=== PATIENT | female | born 1995 | race Caucasian/White ===

== ENCOUNTER 2017-07-11 07:00 | Inpatient (IN) ==
[2017-07-11] MEDS ORDERED: LR 1,000 ML IV PRN (07:23)
[2017-07-11] MEDS ORDERED: CALCIUM CARBONATE Chewable 500mg TABLET PO PRN ×2 (07:23→17:19)
[2017-07-11] MEDS ORDERED: CARBOPROST 250 MCG/ML INJECTION IM PRN (07:23)
[2017-07-11] MEDS ORDERED: D5LR 1,000 ML IV PRN (07:23)
[2017-07-11] MEDS ORDERED: MAG-AL + SIM ORAL LIQUID 30ml PO PRN ×2 (07:23→17:19)
[2017-07-11] MEDS ORDERED: METHYLERGONOVINE 0.2 MG/ML INJECTION IM PRN (07:23)
[2017-07-11] MEDS ORDERED: ACETAMINOPHEN 500 MG TABLET PO PRN ×2 (07:23→17:19)
[2017-07-11] MEDS ORDERED: LIDOCAINE 1% (10mg/ml) 2mL INJ PF SDV ID PRN (07:23)
[2017-07-11] MEDS ORDERED: OXYTOCIN DRIP 30 UNIT/500 ML ML IV PRN (07:23)
[2017-07-11 07:45] VITALS: BMI 36.6
[2017-07-11] MEDS ORDERED: NALOXONE 0.4 MG/ML INJECTION IVP PRN (11:52)
[2017-07-11] MEDS ORDERED: ONDANSETRON 4 MG/2 ML INJECTION IVP PRN (11:52)
[2017-07-11] MEDS ORDERED: DiphenhydrAMINE 50 MG/ML INJECTION IVP PRN (11:52)
[2017-07-11] MEDS ORDERED: ROPIVACAINE 1% 10MG/ML INJ 200 MG, SUFentanil 50 MCG in NS 100 ML EPI PRN (11:52)
--- NOTE | 2017-07-11 11:52 | Anesthesia Preoperative Report ---
Anesthesia Epidural/Spinal Rec - Date and Time Date: 07/11/17 Preoperative Diagnosis: Procedure: Labor Epidural Plan: Epidural - Vital Signs Vital Signs: Temperature 98.8 F 07/11/17 07:38 Pulse Rate 102 H 07/11/17 07:38 Respiratory Rate 16 07/11/17 07:38 Blood Pressure 143/93 H 07/11/17 07:38 /Para: P:1 - Medictaions & Allergies Inpatient Medications: Current Medications Acetaminophen (Tylenol) 500 - 1,000 mg PO Q4H PRN PRN Reason: Pain Last Admin: 07/11/17 10:22 Dose: 500 mg Al Hydroxide/Mg Hydroxide (Maalox Plus) 30 ml PO Q3H PRN PRN Reason: Indigestion Calcium Carbonate (Tums) 500 - 1,000 mg PO Q2H PRN PRN Reason: Indigestion Carboprost Tromethamine (Hemabate) 250 mcg IM O PRN PRN Reason: .Downtime Dextrose/Lactated Ringer's (Dextrose 5%-Lactated Ringers) 1,000 mls @ 125 mls/ hr IV .Q8H PRN PRN Reason: Labor Last Admin: 07/11/17 08:00 Dose: 125 mls/hr Lactated Ringer's (Lactated Ringers) 1,000 mls @ 999 mls/hr IV .Q1H1M PRN Last Admin: 07/11/17 07:36 Dose: 999 mls/hr Oxytocin (Pitocin Drip) 30 unit in 500 mls @ 2 mls/hr IV .Q24H PRN; Protocol PRN Reason: Induction/Augmentation Last Admin: 07/11/17 07:56 Dose: 2 mls/hr Lidocaine HCl (Xylocaine-Mpf 1% Vial) 0.2 mg ID O PRN PRN Reason: IV Start Methylergonovine Maleate (Methergine) 0.2 mg IM O PRN Misoprostol (Cytotec) 800 mcg AR ONCE PRN Allergies/Adverse Reactions: Allergies Allergy/AdvReac Type Severity Reaction Status Date / Time No Known Drug Allergies Allergy Unknown NONE Verified 07/11/17 07:52 - Home Medications Home Medications: Home Medications Medication Instructions Recorded Confirmed Type Wellbutrin XL (bupropion HCl XL) 150 mg PO QAM 11/10/16 07/11/17 History 150 mg 24 hr tablet CALCIUM CARBONATE Chewable [Tums] 1 - 2 tab PO PRN PRN 06/09/17 07/11/17 History Vit Calc,Iron,Folic 1 each PO DAILY 06/09/17 07/11/17 History [ Vitamins] - Medical History Neuro/Musculoskeletal: Reports: Depression - Surgical History Reproductive Surgery/Treatment: DENIES: Section Anesthesia Reactions: None Hx Family Anesthesia Reaction: No History of Motion Sickness: No - Social History Smoking Status: Never smoker Second Hand Exposure: No Substance Use Type: does not use Alcohol Intake Frequency: does not drink Hx Chewing Tobacco Use: No - Pertinent Findings Lab Data: CBC and BMP 07/11/17 07:36 EKG Rhythm: Normal Sinus Rhythm - Physical Exam Respiratory Exam: lungs clear Cardiovascular Exam: regular rate and rhythm, no murmur - Airway Assessment Mallampati Score: II TMD: 3 Fingerbreadths Neck Extension: good Overall Assessment: no airway concerns - ASA ASA Score: 2 - Discussion Discussion: Discussed risks/options/alternatives of anesthesia and questions answered. Patient consents. Nursing pain assessment noted. Anesthesia Discussion: spouse Attestation Statement: Prior to the delivery of any anesthetic medication, I examined the patient, developed the plan, obtained the patient's consent and discussed the risk and benefits of the procedure with the patient/guardian.
[2017-07-11] MEDS ORDERED: LIDOCAINE 2%/EPI 1:200,000 20ml SDV PF ONE (14:22)
[2017-07-11] MEDS ORDERED: HYDROCORTISONE 2.5% CREAM 30gm RECTALLY PRN (17:19)
[2017-07-11] MEDS ORDERED: OXYTOCIN DRIP 30 UNIT/500 ML ML IV SCH (17:19)
[2017-07-11] MEDS ORDERED: DiphenhydrAMINE 25 MG CAPSULE PO PRN (17:19)
--- NOTE | 2017-07-11 17:23 | Labor and Delivery Note ---
DATE OF DELIVERY 07/11/2017 NARRATIVE Ms. Trammell progressed well in first stage of labor. She began to push with excellent effort at the complete and +2 position. She pushed for a few contractions, delivering the head in the OA presentation. Baby was bulb suctioned on the perineum. There was a loose nuchal cord that was reduced without difficulty. With one further push the baby was delivered in total. Baby was further bulb suctioned and placed on the mother's abdomen for care. This is a liveborn male with Apgars of 8/9/9. Weight has not yet been obtained as he is still in [id number] contact with mom. After about 2-1/2 minutes the cord was doubly clamped. It was cut by the baby's father, James. The placenta subsequently delivered spontaneously intact. It had a normal configuration and normal-appearing three-vessel cord. Perineum was intact. There no lacerations on vaginal sweep. Total blood loss was approximately 300 mL. At the time of this dictation mother and baby are doing well. CINTHIA
--- NOTE | 2017-07-11 18:01 | Anesthesia Postoperative Note ---
- Date and Time Date: 07/11/17 Time: 18:00 - Status Patient Participated in Evaluation: Patient Participated in Person Vital Signs: Temperature 98.8 F 07/11/17 07:38 Pulse Rate 102 H 07/11/17 07:38 Respiratory Rate 16 07/11/17 07:38 Blood Pressure 143/93 H 07/11/17 07:38 Respiratory Function: Airway Patent Cardiovascular Function: Regular Pulse Mental Status: Alert and Oriented Pain Intensity: 0 Hydration: Taking PO Fluids Complications During Recover: None Apparent - Follow-Up Instructions Instructions: Per Surgeon
[2017-07-11] MEDS: IBUPROFEN 800 MG TABLET PO SCH ×2 (18:02→23:59)
[2017-07-11] MEDS: BuPROPion XL 150mg (24HR) TABLET PO SCH (20:31)
[2017-07-11 20:35] VITALS: RESP 18
[2017-07-12] MEDS: IBUPROFEN 800 MG TABLET PO SCH ×2 (02:53→09:01)
[2017-07-12] MEDS: HYDROCODONE/APAP 5mg/325mg TABLET PO PRN ×2 (02:59→11:47)
[2017-07-12] MEDS ORDERED: FERROUS SULFATE 324 MG TABLET PO SCH (08:00)
[2017-07-12] MEDS ORDERED: DOCUSATE CALCIUM 240 MG CAPSULE PO SCH (09:00)
[2017-07-12] MEDS ORDERED: PRENATAL VITAMIN TABLET PO SCH (09:00)
[2017-07-12] MEDS: BuPROPion XL 150mg (24HR) TABLET PO SCH (11:45)
[2017-07-12 13:02] VITALS: BP 138/73; PULSE 88; TEMP 98.2; O2SAT 100
== END 2017-07-12 18:26 | disposition home or self-care (01) | DRG 775 ==
LOC: MC 07:06
PROVIDERS: ADMIT Obstetrics & Gynecology; ATTEND Obstetrics & Gynecology